=== PATIENT | male | born 1960 | race American Indian/Alaskan Native ===

== ENCOUNTER 2019-12-09 11:57 | Emergency (ER) | payer MEDICARE ==
--- NOTE | 2019-12-09 12:45 | Event Note ---
ED Screening Note Date of service: 12/09/19 Time: 12:43 ED Screening Note: 59 y o male presents to ED cc of pain and rash to his genital area x several days denies dysuria, penile d/c or any trauma This initial assessment/diagnostic orders/clinical plan/treatment(s) is/are subject to change based on patients health status, clinical progression and re- assessment by fellow clinical providers in the ED. Further treatment and workup at subsequent clinical providers discretion. Patient/guardian urged not to elope from the ED as their condition may be serious if not clinically assessed and managed. Initial orders include: acc eval
[2019-12-09 12:49] VITALS: BP 111/79
--- NOTE | 2019-12-09 18:49 | Emergency Department Report ---
ED Male HPI - General Chief complaint: Skin Rash Stated complaint: GROIN ISSUE Time Seen by Provider: 12/09/19 18:25 Source: patient Mode of arrival: Ambulatory Limitations: No Limitations - History of Present Illness Initial comments: Mr. Vazquez is a 59 y /o male presents to ED cc of pain and rash to his genital area x several days . He denies dysuria, penile d/c or any trauma. rash consist of ulceration and burning. he is circumcised. there is no fever or chilled , no n/v , no abd or back pain. He denies modifying factors. He is not sexually act garcia. Denies know hx of STI MD Complaint: other (rash penil shaft ) Onset/Timin -: week(s) Location: penis Radiation: none Severity: moderate Severity scale (0 -10): 4 Quality: burning, other (itching ) Consistency: constant Improves with: none Worsens with: palpation rash. denies: swelling, urinary retention, blood in urine, dysuria, fever, nausea/vomiting, incontinence - Related Data Sexually active: No Previous Rx's Medication Instructions Recorded Last Taken Type Clotrimazole 1% [Lotrimin 1%] 1 applic TP BID #1 tube 12/09/19 Unknown Rx Valacyclovir HCl [Valtrex] 1,000 mg PO BID #20 tablet 12/09/19 Unknown Rx Allergies Allergy/AdvReac Type Severity Reaction Status Date / Time No Known Allergies Allergy Unverified 12/09/19 12:05 ED Review of Systems ROS: Stated complaint: GROIN ISSUE Other details as noted in HPI Constitutional: denies: chills, fever Eyes: denies: eye pain, eye discharge, vision change ENT: denies: ear pain, throat pain Respiratory: denies: cough, shortness of breath, wheezing Cardiovascular: denies: chest pain, palpitations Endocrine: no symptoms reported Gastrointestinal: denies: abdominal pain, nausea, diarrhea Genitourinary: denies: urgency, dysuria, frequency, hematuria, discharge Musculoskeletal: denies: back pain, joint swelling, arthralgia Skin: rash (penile ). denies: lesions Neurological: denies: headache, weakness, paresthesias Psychiatric: denies: anxiety, depression Hematological/Lymphatic: denies: easy bleeding, easy bruising ED Past Medical Hx - Past Medical History Previous Medical History?: No - Surgical History Past Surgical History?: No - Social History Smoking Status: Never Smoker Substance Use Type: None - Medications Home Medications: Home Medications Medication Instructions Recorded Confirmed Last Taken Type Clotrimazole 1% [Lotrimin 1%] 1 applic TP BID #1 tube 12/09/19 Unknown Rx Valacyclovir HCl [Valtrex] 1,000 mg PO BID #20 tablet 12/09/19 Unknown Rx ED Physical Exam - General Limitations: No Limitations General appearance: alert, in no apparent distress - Head Head exam: Present: atraumatic, normocephalic - Eye Eye exam: Present: normal appearance - ENT ENT exam: Present: normal exam - Neck Neck exam: Present: normal inspection - Respiratory Respiratory exam: Present: normal lung sounds bilaterally. Absent: respiratory distress - Cardiovascular Cardiovascular Exam: Present: regular rate, normal rhythm. Absent: systolic murmur, diastolic murmur, rubs, gallop - GI/Abdominal GI/Abdominal exam: Present: soft, normal bowel sounds - Rectal Rectal exam: Present: deferred - exam: Present: circumcision. Absent: testicular tenderness, urethral discharge External exam: Present: erythema, lesions (red pain to touch , no discharge, ), other (peeling erythema ) - Extremities Exam Extremities exam: Present: normal inspection - Back Exam Back exam: Present: normal inspection, full ROM. Absent: tenderness, CVA tenderness (R), CVA tenderness (L) - Neurological Exam Neurological exam: Present: alert, oriented X3 - Psychiatric Psychiatric exam: Present: normal affect, normal mood - Skin Skin exam: Present: warm, dry, intact, rash (as above) ED Course Vital Signs 12/09/19 12:44 Temperature 98 F Pulse Rate 100 H Respiratory 18 Rate Blood Pressure 111/79 O2 Sat by Pulse 99 Oximetry ED Medical Decision Making - Medical Decision Making Rash likely balanitis. However multiple lesions, round painful, yellow, center no discharge. Will prescribe Valtrex, patient will follow-up with health department for HSV screening. Treated with Diflucan p.o. in ED. patient verbalized agreement and understanding of discharge plan will be DC'd home in stable condition at this time with prescription for Valtrex and clotrimazole cream. Critical care attestation.: If time is entered above; I have spent that time in minutes in the direct care of this critically ill patient, excluding procedure time. 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
[2019-12-09] MEDS ORDERED: valACYclovir 500 MG TAB PO ONE (19:00)
[2019-12-09] MEDS ORDERED: FLUCONAZOLE 200 MG TAB PO ONE (19:00)
== END 2019-12-09 19:02 | disposition home or self-care (01) ==
LOC: ED 11:57
DX: A60.01 Herpesviral infection of penis (principal); Z79.899 Other long term (current) drug therapy
CPT/HCPCS: 99282

== ENCOUNTER 2019-12-20 13:24 | Emergency (ER) | payer MEDICARE ==
--- NOTE | 2019-12-20 16:43 | Emergency Department Report ---
Chief Complaint: Pain General Stated Complaint: BODY SORENESS Time Seen by Provider: 12/20/19 16:38 - HPI History of Present Illness: 59 y/o male comes in for needing a refill on his cream. He was seen 12/09/19. Was diagnosed with Herpes and balanitis. Patient has taken nothing for pain. - Exam Physical Exam: AxO times MSE screening note: Focused history and physical exam performed. Due to findings the following was ordered: 59 y/o male comes in for needing a refill on his cream. He was seen 12/09/19. Was diagnosed with Herpes and balanitis. Patient has taken nothing for pain. Referral to Primary Care Provider. ED Disposition for MSE Disposition: MED SCREENING EXAM-LEFT Is pt being admited?: No Does the pt Need Aspirin: No Condition: Stable Additional Instructions: Referral to Primary Care Provider. Take Tylenol or Ibuprofen. Referrals: CHEMA REILLY MD [Staff Physician] - 3-5 Days [facility] [Provider Group] - 3-5 Days
[2019-12-20 16:44] VITALS: BP 121/73
== END 2019-12-20 17:27 | disposition left against medical advice (07) ==
LOC: ED 13:24
DX: N48.1 Balanitis (principal); B00.9 Herpesviral infection, unspecified; Z76.0 Encounter for issue of repeat prescription
CPT/HCPCS: 99282

== ENCOUNTER 2019-12-23 13:42 | Outpatient (CLI) | payer MEDICARE ==
[2019-12-23 14:55] LABS: Bilirubin,Urine NEG (Negative); Blood,Urine NEG (Negative); Color,Urine Yellow (Yellow); Mucus,Urine FEW /HPF; Protein,Urine <15 mg/dL mg/dL (Negative)
[2019-12-23 15:21] LABS: Hepatitis C Virus Antibody Non-Reactive (NonReactive)
[2019-12-23 15:59] LABS: Hepatitis B Surface Antigen Non-Reactive (Negative)
[2019-12-26 19:54] LABS: HSV 1 IgG Type-Specific Ab <0.90 Index (<0.90)
[2020-01-01 07:00] LABS: HSV 1 IgM Titer SEE SCANNED RESULT; HSV 2 IgM Titer SEE SCANNED RESULT
== END 2019-12-23 13:43 | disposition home or self-care (01) ==
LOC: LAB 13:42
PROVIDERS: ATTEND Internal Medicine
DX: A64 Unspecified sexually transmitted disease (principal); Z11.59 Encounter for screening for other viral diseases
CPT/HCPCS: 36415; 80074; 81001; 86592; 86695; 86696; 86705; 86706; 86709; 87591

== ENCOUNTER 2022-06-07 19:09 | Observation (INO) | payer MEDICARE ==
--- NOTE | 2022-06-07 20:14 | Event Note ---
Date: 06/07/22 EMS documentation not available at time of chart dictation Medical screening examination note: 62-year-old gentleman, brought to the hospital by emergency medical services with an EMS articulated complaint of shortness of breath, and diminished cognition. Last known well time not explicitly known. Patient is awake, moving 4 extremities, breathing spontaneously, not in any acute distress, and is not vomiting, and appears to be protecting his airway. Placed patient on tank systems maintainer, obtain appropriate laboratory studies, x-ray the chest, CT scan of the brain, and arterial blood gas on room air. Detailed history and physical to be performed by oncoming provider Vital Signs 06/07/22 19:39 Temperature 98.8 F Pulse Rate 92 H Respiratory 18 Rate Blood Pressure 111/71 O2 Sat by Pulse 98 Oximetry
--- NOTE | 2022-06-07 20:38 | XRay Report ---
CHEST 1 VIEW 06/07/2022 8:20 PM INDICATION / CLINICAL INFORMATION: Altered Mental Status. COMPARISON: None. FINDINGS: SUPPORT DEVICES: None. HEART / MEDIASTINUM: Heart size is normal. There has been prior sternotomy. LUNGS / PLEURA: There is mild airspace disease in the infrahilar medial right lower lung. The left santa ng is clear. No pneumothorax. ADDITIONAL FINDINGS: No significant additional findings. IMPRESSION: 1. Mild airspace disease in the medial/infrahilar right lower lung is nonspecific. Infiltrate could h ave this appearance. Lungs are otherwise clear. Signer Name: Iglesia Sanches MD Signed: 06/07/2022 8:33 PM Workstation Name: [id number]
[2022-06-07 21:00] LABS: ABG Base Excess 4.4 mmol/L (-2.0-3.0); ABG HCO3 30.2 mmol/L (20.0-26.0); ABG Methemoglobin 0.8 % (0.0-1.5); ABG Oxygen Saturation 75.2 % (95.0-99.0); ABG PCO2 49.5 mm Hg; ABG PH 7.403 pH Units (7.350-7.450)
[2022-06-07 21:06] LABS: Hematocrit 41.7 % (35.5-45.6); Hemoglobin 13.9 gm/dl (11.8-15.2); Mean Corpuscular HGB Conc 33 % (32-34); Mean Corpuscular Volume 94 fl (84-94); Platelet Count 212 K/mm3 (140-440); Red Blood Count 4.41 M/mm3 (3.65-5.03); Red Cell Distribution Width 14.1 % (13.2-15.2)
--- NOTE | 2022-06-07 21:13 | Emergency Department Report ---
HPI - General Chief Complaint: Dyspnea/Respdistress PUI?: No - HPI HPI: pLEASE NOTE THAT MSE EXAM WAS PERFORMED BY Dr. Frazier, prior to this provider's shift time/arrival. Pt had been ordered for labs/diagnostic imaging and have partially resulted at the time of this provider's evaluation of the patient. 62YO m with unknown past medical history presents for evaluation of altered mental status. Patient is minimally verbal when this provider questions him as well as evaluates him. He will open his eyes and respond to his name and will follow basic commands such as moving his extremities when asked. However patient does not provide further information concerning HPI and reasons for coming to emergency department today. Remainder of review of systems unknown. ED Past Medical Hx - Past Medical History Previous Medical History?: Yes Hx Hypertension: Yes - Surgical History Past Surgical History?: No - Social History Smoking Status: Current Every Day Smoker - Medications Home Medications: Home Medications Medication Instructions Recorded Confirmed Last Taken Type Clotrimazole 1% [Lotrimin 1%] 1 applic TP BID #1 tube 12/09/19 Unknown Rx Valacyclovir HCl [Valtrex] 1,000 mg PO BID #20 tablet 12/09/19 Unknown Rx ED Review of Systems ROS: Stated complaint: SOB Other details as noted in HPI Comment: Unobtainable due to pts medical conditions Physical Exam - Physical Exam Vital Signs: Vital Signs 06/07/22 06/07/22 06/07/22 19:39 20:38 20:46 Temperature 98.8 F Pulse Rate 92 H 74 99 H Respiratory 18 15 14 Rate Blood Pressure 111/71 O2 Sat by Pulse 98 98 99 Oximetry General: Gen: Thin disheveled middle-age male, extremely poor dentition noted, asleep but arousable, responds "yes" when his name is called, intermittently having facial grimacing and lipsmacking, HEENT: Normocephalic atraumatic pupils equally round and reactive to light extraocular muscles intact sclera anicteric Neck: Full range of motion, no midline spinal tenderness palpation, no JVD, no carotid bruits, no nuchal rigidity CVS: S1-S2 regular rate and rhythm with no gallops rubs or murmurs, chest wall nontender Pulmonary: Clear to auscultation bilaterally, no wheezes rales or rhonchi Abdomen: Soft nondistended nontender no guarding or rebound tenderness, no palpable deformities or step-offs, normal active bowel sounds, no hepatosplenomegaly, no pulsatile masses : Deferred Extremities: No cyanosis no clubbing no edema, intact distal peripheral pulses, Integumentary: Skin normal, no petechia no purpura no abscess no lacerations no evidence of trauma no evidence of infection, skin is dry, unkempt Neuro: Patient is awake alert ; unclear if patient's orientation as he will not answer his date of nor the location no other circumstances as to why he is here, he is moving all extremities spontaneously, 5 out of 5 motor strength u pper extremity lower extremity bilaterally, patient uncooperative remainder of neurological exam Psych: Calm, cooperative, patient not verbalizing any responses to this provider except as what was mentioned in the general above ED Course Vital Signs 06/07/22 06/07/22 06/07/22 19:39 20:38 20:46 Temperature 98.8 F Pulse Rate 92 H 74 99 H Respiratory 18 15 14 Rate Blood Pressure 111/71 O2 Sat by Pulse 98 98 99 Oximetry - Reevaluation(s) Reevaluation #1: 06/08/22 01:42 pt is minimally verbal; will follow commands but unclear if patient is unable to answer this provider's questions, will continue to monitor closely 06/08/22 01:42 ED Medical Decision Making - Lab Data Result diagrams: 06/07/22 20:26 06/07/22 20:26 - EKG Data -: EKG Interpreted by Nm EKG shows normal: sinus rhythm Rate: normal - EKG Data When compared to previous EKG there are: no significant change 06/07/22 21:12 EKG note from interpreted by me: Ventricular rate 99 bpm. P waves are present and proceed every QRS complex. Intervals normal. No ST segment depressions or elevations. No T wave flattening or inversions. No ectopic. No arrhythmia. Normal axis. Sinus rhythm. - Radiology Data Radiology results: report reviewed - Medical Decision Making 62-year-old male with unknown past medical history brought in for altered mental status. Patient continues to remain altered here. COVID test ordered and is pending. Urine drug screen pending. Remainder of serum labs reviewed. Patient has hypoxemia. He was placed on 4 L of oxygen via nasal cannula here in the ER. Diagnostic imaging results reviewed. Patient given ceftriaxone and azithromycin for treatment of community-acquired pneumonia. Case reviewed with . He has agreed to accept the patient to the hospitalist service for admission Critical Care Time: No Critical care attestation.: If time is entered above; I have spent that time in minutes in the direct care of this critically ill patient, excluding procedure time. ED Disposition Clinical Impression: Community acquired pneumonia, Hypoxemia, Altered mental status Disposition: ADMITTED INPATIENT Is pt being admited?: Yes Does the pt Need Aspirin: No Condition: Stable Instructions: Bacterial Pneumonia (ED) Referrals: CHEMA REILLY MD [Primary Care Provider] - 3-5 Days
[2022-06-07 21:16] LABS: INR 1.03 (0.87-1.13)
[2022-06-07 21:17] LABS: Partial Thromboplastin Time 29.7 Sec. (24.2-36.6)
[2022-06-07 21:20] LABS: Alanine Aminotransferase 23 units/L (7-56); Albumin 4.2 g/dL (3.9-5); BUN/Creatinine Ratio 14; Blood Urea Nitrogen 11 mg/dL (9-20); Calcium 9.3 mg/dL (8.4-10.2); Hemolysis Index 7
[2022-06-07 21:50] LABS: Band Neutrophils # (Manual) 0.1 K/mm3; Basophils % (Manual) 0 % (0.0-1.8); Eosinophils % (Manual) 0 % (0.0-4.3); Platelet Estimate Consistent w Auto; Total Cells Counted 100
[2022-06-07 22:50] LABS: ABG PO2 37.9 mm Hg (80.0-90.0)
--- NOTE | 2022-06-07 23:13 | Cat Scan Report ---
CT head/brain wo con INDICATION / CLINICAL INFORMATION: 62 years Male; Altered Mental Status. TECHNIQUE: Routine CT head without contrast. All CT scans at this location are performed using CT dos e reduction for ALARA by means of automated exposure control. COMPARISON: None. FINDINGS: BRAIN / INTRACRANIAL CONTENTS: No acute hemorrhage, mass effect, midline shift, hydrocephalus, or acu te, large territorial infarct. No signs of significant atrophy or chronic infarct. Minimal, nonspecif ic white matter disease suggested. CRANIOCERVICAL JUNCTION: No significant abnormality. ORBITS: No significant abnormality of visualized orbits. SINUSES / MASTOIDS: Mild mucosal thickening in the ethmoids and perhaps the mastoids. ADDITIONAL FINDINGS: Small lipoma seen superficial left frontal bone. IMPRESSION: 1. No focal mass, hemorrhage, hydrocephalus, or acute, large territorial infarct. Signer Name: Jared Silva MD, III Signed: 06/07/2022 11:09 PM Workstation Name: [email or web address]Pier[facility] Global Threat [email or web address]
--- NOTE | 2022-06-08 00:41 | Cat Scan Report ---
CTA CHEST WITH IV CONTRAST INDICATION: hypoxemia, altered mental status, chest pain with dyspnea TECHNIQUE: Axial CT images were obtained through the chest after injection of 100 mL Omnipaque 350 IV contrast. 3 plane MIP reconstructions were produced. All CT scans at this location are performed using CT dose reduction for ALARA by means of automated exposure control. COMPARISON: None available. FINDINGS: PULMONARY ARTERIES: No pulmonary emboli. AORTA AND ARTERIES: No acute abnormality. MEDIASTINUM: No mass, lymphadenopathy or other significant abnormality. Midline sternotomy noted The heart is normal in size without a pericardial effusion. The trachea and main bronchi are patent and n ormal in caliber. LUNGS: Faint airspace disease left lower lobe Coronary artery calcifications: Mild. UPPER ABDOMEN: No acute findings. BONES: No significant osseous abnormality. IMPRESSION: 1. No CT evidence for pulmonary embolism. 2. Patchy airspace disease left lower lobe Signer Name: Joe England MD Signed: 06/08/2022 12:37 AM Workstation Name: [id number]
[2022-06-08] MEDS ORDERED: AZITHROMYCIN/NS 500 MG/250 ML 500 MG/250 ML BAG IV ONE (00:51)
[2022-06-08] MEDS ORDERED: cefTRIAXone/NS 1 GM/50 ML 1 GM/50 ML BAG IV ONE (00:51)
[2022-06-08] MEDS ORDERED: SODIUM CHLORIDE 0.9% 1000 ML 1,000 ML IV ONE (00:52)
[2022-06-08] MEDS ORDERED: ACETAMINOPHEN 325 MG TAB PO PRN (01:58)
[2022-06-08] MEDS ORDERED: MORPHINE 4 MG/1 ML INJ IV PRN (01:58)
[2022-06-08] MEDS ORDERED: MAGNESIUM HYDROXIDE (MOM) ORAL LIQD UDC PO PRN (01:58)
[2022-06-08] MEDS ORDERED: ONDANSETRON 4 MG/2 ML INJ IV PRN (01:58)
[2022-06-08] MEDS ORDERED: SODIUM CHLORIDE 0.9% 1000 ML 1,000 ML IV SCH (02:00)
--- NOTE | 2022-06-08 02:10 | History and Physical Report ---
History of Present Illness Date of examination: 06/08/22 Date of admission: 06/08/2022 Chief complaint: Altered mental status History of present illness: 62-year-old male with known history of hypertension presenting to the emergency room today for evaluation of changes in mental status. Patient is nonverbal and most of the history was obtained from the ER staff. Family members also not available. Patient was able to open his eyes but does not respond to any qu estions. Work-up in the emergency room today, ABG was significant for pH of 7.4, PCO2 of 49.5 PO2 of 37.9. Bicarb of 30.2. CT of the head was negative, chest x-ray significant for left lower lobe pn eumonia. CT angiogram of the chest negative for PE. Patient has been started on empiric IV antibiotics and also placed on oxygen. Past History Past Medical History: hypertension Past Surgical History: No surgical history Social history: smoking (Current daily smoker) Family history: no significant family history Medications and Allergies Allergies Allergy/AdvReac Type Severity Reaction Status Date / Time No Known Allergies Allergy Unverified 12/09/19 12:05 Home Medications Medication Instructions Recorded Confirmed Last Taken Type Clotrimazole 1% [Lotrimin 1%] 1 applic TP BID #1 tube 12/09/19 06/08/22 Unknown Rx Valacyclovir HCl [Valtrex] 1,000 mg PO BID #20 tablet 12/09/19 06/08/22 Unknown Rx Active Meds: Active Medications Acetaminophen (Acetaminophen 325 Mg Tab) 650 mg PO Q4H PRN PRN Reason: Pain MILD(1-3)/Fever >100.5/KOLB Azithromycin (Azithromycin 250 Mg Tab) 500 mg PO QDAY TUNDE; Protocol Heparin Sodium (Porcine) (Heparin 5,000 Unit/1 Ml Vial) 5,000 unit SUB-Q Q8HR TUNDE Sodium Chloride (Nacl 0.9% 1000 Ml) 1,000 mls @ 125 mls/hr IV DIRECT TUNDE Ceftriaxone Sodium (Rocephin/Ns 2 Gm/100 Ml) 2 gm in 100 mls @ 200 mls/hr IV Q24H TUNDE; Protocol Magnesium Hydroxide (Magnesium Hydroxide (Mom) Oral Liqd Udc) 30 ml PO Q4H PRN PRN Reason: Constipation Morphine Sulfate (Morphine 2 Mg/1 Ml Inj) 2 mg IV Q4H PRN PRN Reason: Pain, Moderate (4-6) Morphine Sulfate (Morphine 4 Mg/1 Ml Inj) 4 mg IV Q4H PRN PRN Reason: Pain , Severe (7-10) Ondansetron HCl (Ondansetron 4 Mg/2 Ml Inj) 4 mg IV Q8H PRN PRN Reason: Nausea And Vomiting Sodium Chloride (Sodium Chloride 0.9% 10 Ml Flush Syringe) 10 ml IV BID TUNDE Sodium Chloride (Sodium Chloride 0.9% 10 Ml Flush Syringe) 10 ml IV PRN PRN PRN Reason: LINE FLUSH Review of Systems ROS unobtainable: due to mental status Exam - Constitutional Vitals: Temp Pulse Resp BP Pulse Ox 98.8 F 100 H 17 117/72 97 06/07/22 19:39 06/07/22 23:00 06/07/22 23:00 06/07/22 23:12 06/07/22 23:00 General appearance: Present: no acute distress, well-nourished, other (Moderate sized lipoma on forehead) - EENT Eyes: Present: PERRL, EOM intact. Absent: scleral icterus ENT: hearing intact, clear oral mucosa, dentition normal - Neck Neck: Present: supple, normal ROM - Respiratory Respiratory effort: normal Respiratory: bilateral: CTA - Cardiovascular Rhythm: regular Heart Sounds: Present: S1 & S2. Absent: gallop, systolic murmur, diastolic murmur, rub, click - Extremities Extremities: no ischemia, pulses intact, pulses symmetrical, No edema, normal temperature, normal color, Full ROM Peripheral Pulses: within normal limits - Abdominal General gastrointestinal: Present: soft, non-tender, non-distended, normal bowel sounds. Absent: mass - Integumentary Integumentary: Present: clear, warm, dry - Musculoskeletal Musculoskeletal: strength equal bilaterally - Psychiatric Psychiatric: cooperative - Neurologic Neurologic: CNII-XII intact, no focal deficits, moves all extremities, other (Nonverbal) HEART Score - HEART Score Troponin: Troponin T < 0.010 ng/mL (0.00-0.029) 06/07/22 20:26 Results - Labs CBC & Chem 7: 06/07/22 20:26 06/07/22 20:26 Labs: Abnormal lab results 09/01/22 09/01/22 09/01/22 Range/Units 20:26 20:26 20:26 Seg Neuts % (Manual) 76.0 H (40.0-70.0) % Monocytes % (Manual) 9.0 H (0.0-7.3) % Lymphocytes # (Manual) 1.1 L (1.2-5.4) K/mm3 ABG pO2 (80.0-90.0) mm Hg ABG HCO3 (20.0-26.0) mmol/L ABG O2 Saturation (95.0-99.0) % ABG Base Excess (-2.0-3.0) mmol/L ABG Hemoglobin (14.0-18.0) gm/dl Oxyhemoglobin (95.0-99.0) % Chloride 97.9 L (98-107) mmol/L Carbon Dioxide 31 H (22-30) mmol/L Glucose 103 H (75-100) mg/dL Total Bilirubin 1.70 H (0.1-1.2) mg/dL Total Creatine Kinase 181 H (55-170) units/L Salicylates 1.7 L (2.8-20.0) mg/dL Acetaminophen (10.0-30.0) ug/mL 06/07/22 06/07/22 Range/Units 20:26 20:50 Seg Neuts % (Manual) (40.0-70.0) % Monocytes % (Manual) (0.0-7.3) % Lymphocytes # (Manual) (1.2-5.4) K/mm3 ABG pO2 37.9 L* (80.0-90.0) mm Hg ABG HCO3 30.2 H (20.0-26.0) mmol/L ABG O2 Saturation 75.2 L (95.0-99.0) % ABG Base Excess 4.4 H (-2.0-3.0) mmol/L ABG Hemoglobin 13.2 L (14.0-18.0) gm/dl Oxyhemoglobin 71.3 L (95.0-99.0) % Chloride (98-107) mmol/L Carbon Dioxide (22-30) mmol/L Glucose (75-100) mg/dL Total Bilirubin (0.1-1.2) mg/dL Total Creatine Kinase (55-170) units/L Salicylates (2.8-20.0) mg/dL Acetaminophen < 5.0 L (10.0-30.0) ug/mL Assessment and Plan Assessment: 1. Altered mental status 2. Community-acquired pneumonia 3. Hypoxemia 4. History of hypertension Plan: 1. Patient admitted and placed on empiric IV antibiotics. 2. We will commence on IV fluid. 3. We will resume routine home medications and monitor vital signs closely. 4. Patient placed on oxygen. We will keep O2 saturation greater or equal to 92%. DVT prophylaxis: Subcutaneous heparin CODE STATUS: Full code
[2022-06-08] MEDS: HEPARIN 5,000 UNIT/1 ML VIAL SUB-Q SCH ×3 (08:15→21:14)
[2022-06-08] MEDS: MORPHINE 2 MG/1 ML INJ IV PRN ×3 (09:02→21:22)
--- NOTE | 2022-06-08 13:38 | Electrocardiograph Report ---
[facility] Test Date: 2022-06-07 Test Time: 20:38:56 Pat Name: MADELINE HENAO Department: Room: A356 1 Gender: M Electronic Lab Technician: NARGIS : 1960 Requested By: BLAYNE AVILA Order Number: [id number] Reading MD: Radha Chen Measurements Intervals [place] Rate: 99 P: 71 [place]: 139 QRS: 49 QRSD: 78 T: 60 QT: 324 QTc: 416 Interpretive Statements Sinus rhythm Consider old anterior infarct No previous ECG available for comparison Electronically Signed On 06-08-2022 13:38:07 EDT by Radha Chen
--- NOTE | 2022-06-08 14:33 | Discharge Summary ---
Providers - Providers Date of Admission: 06/08/22 01:59 Date of discharge: 06/08/22 Attending physician: YOHANA BRENNER Primary care physician: CHEMA REILLY Hospitalization Condition: Stable Final Discharge Diagnosis (Prints w/discharge instructions): --left LL PNA Time spent for discharge: 34 minutes Exam - Constitutional Vitals: Temp Pulse Resp BP Pulse Ox 98.8 F 103 H 15 109/71 99 06/07/22 19:39 06/08/22 07:59 06/08/22 07:59 06/08/22 07:59 06/08/22 12:27 Plan Activity: advance as tolerated Weight Bearing Status: Weight Bear as Tolerated Diet: low fat, low salt Follow up with: CHEMA REILLY MD [Primary Care Provider] - 3-5 Days Prescriptions: levoFLOXacin [Levaquin] 750 mg PO QDAY #5 tablet Albuterol Mdi (or & Nicu Only) [ProAir HFA Inhaler] 2 puff IH QID PRN #8.5 gram PRN Reason: Shortness Of Breath
[2022-06-08] MEDS ORDERED: cefTRIAXone/NS 2 GM/100 ML 2 GM/100 ML BAG IV SCH (22:00)
[2022-06-08] MEDS ORDERED: AZITHROMYCIN 250 MG TAB PO SCH (22:00)
[2022-06-08 23:57] VITALS: BP 124/81
== END 2022-06-09 01:25 | disposition home or self-care (01) ==
LOC: ED 19:09 → INTOOBSV 06-08 01:59 → 3A 06-08 01:59
PROVIDERS: ADMIT Internal Medicine Geriatric Medicine; ATTEND Internal Medicine
DX: J18.9 Pneumonia, unspecified organism (principal); Z20.822 Contact with and (suspected) exposure to COVID-19; R09.02 Hypoxemia; R41.82 Altered mental status, unspecified; I10 Essential (primary) hypertension; F17.200 Nicotine dependence, unspecified, uncomplicated; Z79.899 Other long term (current) drug therapy; Z98.890 Other specified postprocedural states
CPT/HCPCS: 36415; 70450; 71045; 71275; 80053; 82140; 82550; 82803; 83735; 83880; 84443; 84484; 85007; 85025; 85610; 85730; 87040; 93005; 96365; 96367; 96372; 96375; 96376; 99285; G0378; J0456; J0696; J1644; J2270; J7030; Q9967; U0003; 80320; G0480